=== PATIENT | female | born 1990 | race Caucasian/White ===

== ENCOUNTER 2018-04-21 00:29 | Emergency (ER) | payer OTHER ==
[~2018-04-21] VITALS: Ht 182.9 cm; Wt 86.2 kg
[2018-04-21 00:29] VITALS: BP 122/55
--- NOTE | 2018-04-21 00:33 | ED.ADGEN ---
Past History Past Medical History: Anxiety, Arthritis, Depression, Other Past Surgical History: Other Smoking: Non-smoker Adult General Chief Complaint Chief Complaint ".. I have bad mastitis.. I so very swollen.. We are going home in the morning.. but I brought the baby in .. because I am afraid it got my mastitis.. But I want to be seen too..." HPI HPI Patient is a 28 year old female who presents with above hx and complaints of bilateral mastitis. Pt. has no obvious cellulitis of nipples, striations or adenopathy. Pt. states previous deliveries she developed mastitis. Recent quit feeding the because she was worried if there was infection it would spread to her child. Pt. does have hx of arthritis. and multiple drug allergies. Pt. visiting from [place] but will be returning home this morning. No hx of immunosuppression . No hx of specific ill contacts. Hx. of some episodes of depression in the past, but not currently having problems . Review of Systems Review of Systems Constitutional: Denies fever or chills [] Eyes: Denies change in visual acuity, redness, or eye pain [] HENT: Denies nasal congestion or sore throat [] Respiratory: Denies cough or shortness of breath [] Cardiovascular: No additional information not addressed in HPI [] GI: Denies abdominal pain, nausea, vomiting, bloody stools or diarrhea [] : Denies dysuria or hematuria [] Musculoskeletal: Denies back pain or joint pain [] Integument: Denies rash or skin lesions []Complaints of mastitis. Neurologic: Denies headache, focal weakness or sensory changes [] Endocrine: Denies polyuria or polydipsia [] All other systems were reviewed and found to be within normal limits, except as documented in this note. Family History Family History Non-contributory Current Medications Current Medications Current Medications Medications (Trade) Dose Ordered Sig/Ann Start Time Stop Time Status Last Admin Dose Admin Acetaminophen/ Hydrocodone Bitart (Lortab 5/325) 1 tab 1X ONCE 04/21/18 01:30 04/21/18 01:31 DC 04/21/18 01:16 1 TAB Cephalexin HCl (Keflex) 500 mg 1X ONCE 04/21/18 01:00 04/21/18 01:01 DC 04/21/18 01:00 500 MG Cephalexin HCl (Startper Pack - Keflex 250mg) 1 startpack 1X ONCE 04/21/18 01:00 04/21/18 01:01 DC 04/21/18 01:00 1 STARTPACK Oxycodone/ Acetaminophen (Percocet 5/325) 2 tab 1X ONCE 04/21/18 00:45 04/21/18 01:01 DC Allergies Allergies Allergies Coded Allergies Type Severity Reaction Last Updated Verified acetaminophen Allergy Unknown 04/21/18 Yes dextromethorphan Allergy Unknown 04/21/18 Yes guaifenesin Allergy Unknown 04/21/18 Yes oxycodone Allergy Unknown 04/21/18 Yes phenylephrine Allergy Unknown 04/21/18 Yes Physical Exam Physical Exam Constitutional: Well developed, well nourished, no acute distress, non-toxic appearance. [] HENT: Normocephalic, atraumatic, bilateral external ears normal, oropharynx moist, no oral exudates, nose normal. [] Eyes: PERRLA, EOMI, conjunctiva normal, no discharge. [] Neck: Normal range of motion, no tenderness, supple, no stridor. [] Cardiovascular:Heart rate regular rhythm, no murmur [] Lungs & Thorax: Bilateral breath sounds clear to auscultation [] Abdomen: Bowel sounds normal, soft, no tenderness, no masses, no pulsatile masses. [] Skin: Warm, dry, no erythema, no rash. [] Breast mastitis as per HPI Back: No tenderness, no CVA tenderness. [] Extremities: No tenderness, no cyanosis, no clubbing, ROM intact, no edema. [] Neurologic: Alert and oriented X 3, normal motor function, normal sensory function, no focal deficits noted. [] Psychologic: Affect anxious, judgement normal, mood normal. [] Current Patient Data Vital Signs Vital Signs Date Time Temp Pulse Resp B/P (MAP) Pulse Ox O2 Delivery O2 Flow Rate FiO2 04/21/18 01:16 20 98 Room Air EKG EKG [] Radiology/Procedures Radiology/Procedures [] Course & Med Decision Making Course & Med Decision Making Pertinent Labs and Imaging studies reviewed. (See chart for details) Moist heat compresses. Let child breast feed. Take Keflex 500 three times a day. May take tylenol for pain. Marked pain may have Vicoden 4 x day. Return if any concerns. Follow up with primary. [] Final Impression Final Impression 1. Mastitis[] Dragon Disclaimer Dragon Disclaimer This electronic medical record was generated, in whole or in part, using a voice recognition dictation system. SHAYY NOBLES MD April 21, 2018 00:33
[2018-04-21] MEDS ORDERED: OXYC-323 PO (00:38)
[2018-04-21] MEDS ORDERED: CEPH-264 PO (00:38)
[2018-04-21] MEDS ORDERED: oxyCODONE/APAP 5/325 1 TAB TABLET PO ONE (00:45)
[2018-04-21] MEDS ORDERED: HYDR1TAB12 PO (00:55)
[2018-04-21] MEDS ORDERED: CEPHALEXIN 250MG 4CAPSULE STARTPACK. PO ONE (01:00)
[2018-04-21] MEDS ORDERED: CEPHALEXIN 250 MG CAPSULE PO ONE (01:00)
[2018-04-21] MEDS ORDERED: HYDROcodone/APAP 5/325MG 1 TAB TABLET PO ONE (01:30)
== END 2018-04-21 01:20 | disposition home or self-care (01) ==
LOC: ER 00:29
DX: N61.0 Mastitis without abscess (principal); F41.9 Anxiety disorder, unspecified; M19.90 Unspecified osteoarthritis, unspecified site; F32.9 Major depressive disorder, single episode, unspecified; Z88.6 Allergy status to analgesic agent; Z88.5 Allergy status to narcotic agent; Z88.8 Allergy status to other drugs, medicaments and biological substances
CPT/HCPCS: 99284

== ENCOUNTER 2020-01-23 22:23 | Emergency (ER) | payer OTHER ==
[~2020-01-23] VITALS: Ht 182.9 cm; Wt 84.4 kg
[~2020-01-23 22:23] MED LIST: CEPH-264 PO; HYDR1TAB13 PO; OXYC1TAB15 PO
[2020-01-23] MEDS ORDERED: IV NORMAL SALINE 1,000ML 1,000 ML IV ONE (23:00)
[2020-01-23] MEDS ORDERED: ONDANSETRON PF 4 MG/2 ML VIAL. IVP ONE (23:00)
[2020-01-23] MEDS ORDERED: FAMOTIDINE 20 MG/2 ML VIAL IVP ONE (23:00)
[2020-01-23] MEDS ORDERED: KETOROLAC 15 MG/ML VIAL. IVP ONE (23:30)
[2020-01-23 23:44] LABS: BASO # 0.1 x10^3/uL (0.0-0.2); BASO % 1 % (0-3); EOS # 0.6 x10^3/uL (0.0-0.7); EOS % 6 % (0-3); HEMATOCRIT 37.9 % (36.0-47.0); HEMOGLOBIN 12.2 g/dL (12.0-15.5); LYMPH # 3.8 x10^3/uL (1.0-4.8); LYMPH % 43 % (24-48); MEAN CORPUSCULAR HEMOGLOBIN 26 pg (25-35); MEAN CORPUSCULAR HGB CONC 32 g/dL (31-37); MEAN CORPUSCULAR VOLUME 81 fL (79-100); MONO # 0.5 x10^3/uL (0.0-1.1); MONO % 5 % (0-9); NEUT # 3.9 x10^3uL (1.8-7.7); NEUT % 44 % (31-73); PLATELET COUNT 324 x10^3/uL (140-400); RED BLOOD COUNT 4.69 x10^6/uL (3.50-5.40); RED CELL DISTRIBUTION WIDTH 15.1 % (11.5-14.5); WHITE BLOOD COUNT 8.8 x10^3/uL (4.0-11.0)
[2020-01-23 23:53] LABS: CALCIUM 8.4 mg/dL (8.5-10.1); CREATININE 0.7 mg/dL (0.6-1.0); GFR 98.3; POTASSIUM 3.3 mmol/L (3.5-5.1)
[2020-01-23 23:55] LABS: U PREG PATIENT NEGATIVE (NEG)
[2020-01-23 23:57] LABS: BACTERIA,URINE FEW /HPF (0-FEW); BILIRUBIN,URINE NEG (NEG); CLARITY,URINE CLEAR; COLOR,URINE YELLOW; GLUCOSE,URINE NEG (NEG); NITRITE,URINE NEG (NEG); SQUAMOUS EPITHELIAL CELL,UR FEW /LPF; UROBILINOGEN,URINE 0.2 mg/dL (0.2 mg/dL); WBC,URINE OCC /HPF (0-4)
[2020-01-23 23:59] LABS: ALBUMIN 3.8 g/dL (3.4-5.0); ALBUMIN/GLOBULIN RATIO 1.2 (1.0-1.7); MAGNESIUM 2.1 mg/dL (1.8-2.4); TOTAL BILIRUBIN 0.2 mg/dL (0.2-1.0); TOTAL PROTEIN 6.9 g/dL (6.4-8.2)
--- NOTE | 2020-01-24 00:41 | RAD ---
US PELVIS W/TV History: Pelvic pain. Vaginal bleeding. Comparison: None. Technique: Grayscale and color Doppler imaging of the pelvis was performed using transabdominal and transvaginal technique. Findings: The uterus measures 10.7 x 4.5 x 6.6 cm in length. Uterus has an unremarkable appearance. The endometrial stripe measures 6.3 mm. Right ovary measures 3.8 x 2.6 x 2.0 cm. Left ovary measures 2.9 x 2.3 x 1.7 cm. No adnexal masses are seen. Small physiologic free fluid. IMPRESSION: 1. Unremarkable pelvic ultrasound. Electronically signed by: Jonny Carson DO (01/24/2020 12:38 AM) [id number]
--- NOTE | 2020-01-24 00:47 | PHYS DOC ---
Past History Past Medical History: Anxiety, Arthritis, Depression, Other Additional Past Medical Histor: Ovarian cyst, Endometreosis Past Surgical History: Tubal ligation, Other Additional Past Surgical Histo: D&C Smoking: Non-smoker Alcohol Use: Occasionally Drug Use: None Adult General Chief Complaint Chief Complaint: ABDOMINAL PAIN HPI HPI 29 year old female presents with lower abdominal/pelvic pain left > right which has been ongoing for last few days. Denies fever/chills. Denies nausea/vomiting/diarrhea. Reports history of endometriosis and ovarian cysts. Reports pain similar to prior episodes. Denies rash or vaginal discharge. 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 Current Medications Current Medications Current Medications Medications (Trade) Dose Ordered Sig/Ann Start Time Stop Time Status Last Admin Dose Admin Famotidine (Pepcid Vial) 20 mg 1X ONCE 01/23/20 23:00 01/23/20 23:01 DC 01/23/20 23:00 20 MG Ketorolac Tromethamine (Toradol 15mg Vial) 15 mg 1X ONCE 01/23/20 23:30 01/23/20 23:31 DC 01/23/20 23:00 15 MG Ondansetron HCl (Zofran) 4 mg 1X ONCE 01/23/20 23:00 01/23/20 23:01 DC 01/23/20 23:00 4 MG Sodium Chloride 1,000 ml @ 1,000 mls/hr 1X ONCE 01/23/20 23:00 01/23/20 23:59 DC 01/23/20 23:00 1,000 MLS/HR Allergies Allergies Allergies Coded Allergies Type Severity Reaction Last Updated Verified acetaminophen Allergy Unknown 04/21/18 Yes dextromethorphan Allergy Unknown 04/21/18 Yes guaifenesin Allergy Unknown 04/21/18 Yes oxycodone Allergy Unknown 04/21/18 Yes phenylephrine Allergy Unknown 04/21/18 Yes Physical Exam Physical Exam Constitutional: Well developed, well nourished, no acute distress, non-toxic appearance HENT: Normocephalic, atraumatic, oropharynx moist Eyes: Conjunctiva normal, no discharge Neck: Normal range of motion, no tenderness, supple Cardiovascular:Heart rate normal, regular rhythm Lungs & Thorax: Bilateral breath sounds clear to auscultation, no wheezing Abdomen: Soft, low LLQ tenderness 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, 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, no CMT, left adnexal tenderness, mild amount of white discharge noted in vaginal vault Skin: Warm, dry, no erythema, no rash Back: No tenderness, no CVA tenderness Extremities: No tenderness, ROM intact Neurologic: Alert and oriented X 3, no focal deficits noted Psychologic: Affect normal, judgement normal Current Patient Data Lab Results Laboratory Tests Test 01/23/20 23:00 01/23/20 23:10 Urine Collection Type Void Urine Color Yellow Urine Clarity Clear Urine pH 5.5 Urine Specific [place] >=1.030 Urine Protein Neg (NEG-TRACE) Urine Glucose (UA) Neg mg/dL (NEG) Urine Ketones (Stick) Neg mg/dL (NEG) Urine Blood Mod (NEG) Urine Nitrite Neg (NEG) Urine Bilirubin Neg (NEG) Urine Urobilinogen Dipstick 0.2 mg/dL (0.2 mg/dL) Urine Leukocyte Esterase Neg (NEG) Urine RBC 1-2 /HPF (0-2) Urine WBC Occ /HPF (0-4) Urine Squamous Epithelial Cells Few /LPF Urine Bacteria Few /HPF (0-FEW) Urine Mucus Mod /LPF White Blood Count 8.8 x10^3/uL (4.0-11.0) Red Blood Count 4.69 x10^6/uL (3.50-5.40) Hemoglobin 12.2 g/dL (12.0-15.5) Hematocrit 37.9 % (36.0-47.0) Mean Corpuscular Volume 81 fL (79-100) Mean Corpuscular Hemoglobin 26 pg (25-35) Mean Corpuscular Hemoglobin Concent 32 g/dL (31-37) Red Cell Distribution Width 15.1 % (11.5-14.5) H Platelet Count 324 x10^3/uL (140-400) Neutrophils (%) (Auto) 44 % (31-73) Lymphocytes (%) (Auto) 43 % (24-48) Monocytes (%) (Auto) 5 % (0-9) Eosinophils (%) (Auto) 6 % (0-3) H Basophils (%) (Auto) 1 % (0-3) Neutrophils # (Auto) 3.9 x10^3uL (1.8-7.7) Lymphocytes # (Auto) 3.8 x10^3/uL (1.0-4.8) Monocytes # (Auto) 0.5 x10^3/uL (0.0-1.1) Eosinophils # (Auto) 0.6 x10^3/uL (0.0-0.7) Basophils # (Auto) 0.1 x10^3/uL (0.0-0.2) Urine Test Negative (NEG) Sodium Level 145 mmol/L (136-145) Potassium Level 3.3 mmol/L (3.5-5.1) L Chloride Level 107 mmol/L (98-107) Carbon Dioxide Level 30 mmol/L (21-32) Anion Gap 8 (6-14) Blood Urea Nitrogen 6 mg/dL (7-20) L Creatinine 0.7 mg/dL (0.6-1.0) Estimated GFR (Cockcroft-Gault) 98.3 BUN/Creatinine Ratio 9 (6-20) Glucose Level 84 mg/dL (70-99) Lactic Acid Level 0.7 mmol/L (0.4-2.0) Calcium Level 8.4 mg/dL (8.5-10.1) L Magnesium Level 2.1 mg/dL (1.8-2.4) Total Bilirubin 0.2 mg/dL (0.2-1.0) Aspartate Amino Transferase (AST) 12 U/L (15-37) L Alanine Aminotransferase (ALT) 15 U/L (14-59) Alkaline Phosphatase 78 U/L (46-116) Total Protein 6.9 g/dL (6.4-8.2) Albumin 3.8 g/dL (3.4-5.0) Albumin/Globulin Ratio 1.2 (1.0-1.7) Lipase 134 U/L (73-393) EKG EKG [] Radiology/Procedures Radiology/Procedures PROCEDURE: US PELVIS W/TV US PELVIS W/TV History: Pelvic pain. Vaginal bleeding. Comparison: None. Technique: Grayscale and color Doppler imaging of the pelvis was performed using transabdominal and transvaginal technique. Findings: The uterus measures 10.7 x 4.5 x 6.6 cm in length. Uterus has an unremarkable appearance. The endometrial stripe measures 6.3 mm. Right ovary measures 3.8 x 2.6 x 2.0 cm. Left ovary measures 2.9 x 2.3 x 1.7 cm. No adnexal masses are seen. Small physiologic free fluid. IMPRESSION: 1. Unremarkable pelvic ultrasound. Electronically signed by: Jonny Carson DO (01/24/2020 12:38 AM) [id number] Course & Med Decision Making Course & Med Decision Making Pertinent Labs and Imaging studies reviewed. (See chart for details) Patient presents with left lower quadrant/pelvic pain. Pain addressed. Labs obtained and posted to chart. US without acute process. Pelvic exam performed. Chlamydia/Gonorrhea cultures pending. Wet mount positive for BV. Flagyl given. 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 Discussed findings and plan with patient, who acknowledges understanding and agreement. Dragon Disclaimer Dragon Disclaimer This electronic medical record was generated, in whole or in part, using a voice recognition dictation system. Departure Departure: Impression: Primary Impression: Pelvic pain Additional Impression: Bacterial vaginitis Disposition: HOME, SELF-CARE Condition: STABLE Referrals: PCP,NO (PCP) Patient Instructions: Pelvic Pain, Female, [id number] Additional Instructions: Use over the counter Tylenol and Naproxen for pain or discomfort. Scripts Metronidazole (FLAGYL) 500 Mg Tablet 1 TAB PO BID for Vaginitis, #14 TAB Prov: CARSON CARPENTER DO 01/24/20 Problem Qualifiers CARSON CARPENTER DO Jan 24, 2020 00:47
[2020-01-24 01:34] VITALS: BP 95/54
[2020-01-24] MEDS ORDERED: METR500T PO (01:43)
[2020-01-24] MEDS ORDERED: metroNIDAZOLE 500 MG TABLET PO ONE (02:00)
[2020-01-25 20:06] LABS: CHLAMYDIA PROBE Negative (Negative)
== END 2020-01-24 01:48 | disposition home or self-care (01) ==
LOC: ER 22:23
DX: N76.0 Acute vaginitis (principal); B96.89 Other specified bacterial agents as the cause of diseases classified elsewhere; M19.90 Unspecified osteoarthritis, unspecified site; Z98.51 Tubal ligation status; Z88.6 Allergy status to analgesic agent; Z88.5 Allergy status to narcotic agent; Z88.8 Allergy status to other drugs, medicaments and biological substances
CPT/HCPCS: 36415; 76830; 76856; 80053; 81001; 81025; 83605; 83690; 83735; 85025; 87491; 87591; 96374; 96375; 99284; J1885; J2405; J3490; Q0111; 96361; J7030

== ENCOUNTER 2020-04-06 22:12 | Emergency (ER) | payer SELFPAY ==
[~2020-04-06] VITALS: Ht 182.9 cm; Wt 84.4 kg
[~2020-04-06 22:12] MED LIST changes: +METR500T PO
[2020-04-06] MEDS ORDERED: IV NORMAL SALINE 1,000ML 1,000 ML IV ONE (22:45)
--- NOTE | 2020-04-06 22:46 | EKG ---
[address] [address] Test Date: 2020-04-06 Test Time: 22:16:07 Pat Name: SHONDA CASTRO Department: Room: Gender: F Barman: : 1990 Requested By: ARMINDA LACEY Order Number: [id number] Reading MD: Chidi Ruiz Measurements Intervals [place] Rate: 63 P: 42 MD: 134 QRS: 46 QRSD: 96 T: 44 QT: 372 QTc: 384 Interpretive Statements SINUS RHYTHM NORMAL ECG RI6.02 No previous ECG available for comparison Electronically Signed On 04-08-2020 8:33:39 CDT by Chidi Ruiz
[2020-04-06 22:59] LABS: BASO # 0.1 x10^3/uL (0.0-0.2); BASO % 1 % (0-3); EOS # 0.4 x10^3/uL (0.0-0.7); EOS % 5 % (0-3); HEMATOCRIT 36.7 % (36.0-47.0); HEMOGLOBIN 11.9 g/dL (12.0-15.5); LYMPH # 3.2 x10^3/uL (1.0-4.8); LYMPH % 43 % (24-48); MEAN CORPUSCULAR HEMOGLOBIN 26 pg (25-35); MEAN CORPUSCULAR HGB CONC 32 g/dL (31-37); MEAN CORPUSCULAR VOLUME 80 fL (79-100); MONO # 0.5 x10^3/uL (0.0-1.1); MONO % 6 % (0-9); NEUT # 3.3 x10^3uL (1.8-7.7); NEUT % 45 % (31-73); PLATELET COUNT 305 x10^3/uL (140-400); RED BLOOD COUNT 4.59 x10^6/uL (3.50-5.40); RED CELL DISTRIBUTION WIDTH 15.9 % (11.5-14.5); WHITE BLOOD COUNT 7.4 x10^3/uL (4.0-11.0)
[2020-04-06 23:00] LABS: CALCIUM 8.8 mg/dL (8.5-10.1); CREATININE 0.7 mg/dL (0.6-1.0); GFR 97.6
[2020-04-06 23:06] LABS: ALBUMIN 3.7 g/dL (3.4-5.0); ALBUMIN/GLOBULIN RATIO 1.2 (1.0-1.7); MAGNESIUM 2.3 mg/dL (1.8-2.4); TOTAL BILIRUBIN 0.2 mg/dL (0.2-1.0); TOTAL PROTEIN 6.9 g/dL (6.4-8.2)
[2020-04-06 23:25] LABS: BARBITURATES NEG (NEG); BENZODIAZEPINES NEG (NEG); CANNABINOIDS NEG (NEG); COCAINE NEG (NEG); METHADONE NEG (NEG); OPIATES NEG (NEG); PHENCYCLIDINE NEG (NEG)
[2020-04-06 23:26] LABS: BACTERIA,URINE 0 /HPF (0-FEW); BILIRUBIN,URINE NEG (NEG); CLARITY,URINE CLEAR; COLOR,URINE YELLOW; GLUCOSE,URINE NEG (NEG); NITRITE,URINE NEG (NEG); RBC,URINE 0 /HPF (0-2); SQUAMOUS EPITHELIAL CELL,UR FEW /LPF; UROBILINOGEN,URINE 0.2 mg/dL (0.2 mg/dL); WBC,URINE OCC /HPF (0-4)
[2020-04-06 23:27] LABS: AMPHETAMINE/METHAMPHETAMINE NEG (NEG)
--- NOTE | 2020-04-06 23:27 | RAD ---
CT Head W/O Contrast: History: Syncopal fall headache and neck pain Comparison: none Axial images were obtained without contrast. The orona and white matter appears normal and symmetrical for the patients age. There is no mass effect, extraaxial fluid collections or hydrocephalus. There is no gross bleed. There is no focal loss of orona-white matter distinction to suggest acute ischemia, i.e. stroke. Impression: No acute findings. End impression CT C-Spine without contrast: Clinical History: Pain status post fall Technique: Axial helical images of the cervical spine were obtained without contrast, axial coronal and sagittal reconstruction was performed. Findings: There is no loss of vertebral body stature. There is no prevertebral soft tissue swelling. The vertebral bodies are well aligned. The C1-C2 relationship is normal. The visualized osseous structures appear normal. Evaluation of the central canal is limited without contrast. There is multiple posterior disc bulges resulting in flattening of the thecal sac. There does not appear to be gross flattening of the cervical cord. There is minimal narrowing of multiple neuroforamen. Impression: No acute findings. Clinical correlation suggested. PQRS Compliance Statement: One or more of the following individualized dose reduction techniques were utilized for this examination: 1. Automated exposure control 2. Adjustment of the mA and/or kV according to patient size 3. Use of iterative reconstruction technique Electronically signed by: Norman Calderón III, MD (04/06/2020 11:24 PM) [id number]
[2020-04-06] MEDS ORDERED: KETOROLAC 30 MG/ML VIAL. IVP ONE (23:45)
--- NOTE | 2020-04-06 23:45 | PHYS DOC ---
Past History Past Medical History: Migraines, Ovarian Cyst, Other Additional Past Medical Histor: chronic low back pain, Endometreosis Past Surgical History: , Tubal ligation, Other Additional Past Surgical Histo: D&C Smoking: Non-smoker Alcohol Use: None Drug Use: None General Adult EDM: Chief Complaint: SYNCOPE HPI: HPI: Patient is a 30-year-old female who was brought here by EMS from home after she had a syncopal episode at home driveway. Patient says she was walking home from her sister which is two block sway, and the next and she knows she was on the ground on her driveway. Patient says she was outside painting her house for several hours before that. Patient says she has been having a headache for the last 3 days, which is chronic migraine headache. Patient denies any chest pain or any trouble breathing. Patient denies any back pain. Review of Systems: Review of Systems: Constitutional: Denies fever or chills Eyes: Denies change in visual acuity HENT: Denies nasal congestion or sore throat Respiratory: Denies cough or shortness of breath Cardiovascular: Denies chest pain or edema GI: Denies abdominal pain, nausea, vomiting, bloody stools or diarrhea : Denies dysuria Musculoskeletal: Denies back pain or joint pain Integument: Denies rash Neurologic: Denies focal weakness or sensory changes . Positive for headache Endocrine: Denies polyuria or polydipsia Lymphatic: Denies swollen glands Psychiatric: Denies depression or anxiety Heart Score: Risk Factors: Risk Factors: DM, Current or recent (<one month) smoker, HTN, HLP, family history of CAD, obesity. Risk Scores: Score 0 - 3: 2.5% MACE over next 6 weeks - Discharge Home Score 4 - 6: 20.3% MACE over next 6 weeks - Admit for Clinical Observation Score 7 - 10: 72.7% MACE over next 6 weeks - Early Invasive Strategies Current Medications: Current Meds: Current Medications Medications (Trade) Dose Ordered Sig/Ann Start Time Stop Time Status Last Admin Dose Admin Sodium Chloride 1,000 ml @ 1,000 mls/hr 1X ONCE 04/06/20 22:45 04/06/20 23:44 DC 04/06/20 23:06 1,000 MLS/HR Allergies: Allergies: Allergies Coded Allergies Type Severity Reaction Last Updated Verified Pertussis Vaccines Allergy Unknown 04/06/20 Yes phenylephrine Allergy Unknown 04/06/20 Yes poliomyelitis vaccine,killed Allergy Unknown 04/06/20 Yes Physical Exam: PE: Constitutional: Well developed, well nourished, no acute distress, non-toxic appearance. [] HENT: Normocephalic, atraumatic, bilateral external ears normal, oropharynx moist, no oral exudates, nose normal. [] Eyes: PERRLA, EOMI, conjunctiva normal, no discharge. [] Neck: Normal range of motion, no tenderness, supple, no stridor. [] Cardiovascular:Heart rate regular rhythm, no murmur [] Lungs & Thorax: Bilateral breath sounds clear to auscultation [] Abdomen: Bowel sounds normal, soft, no tenderness, no masses, no pulsatile masses. [] Skin: Warm, dry, no erythema, no rash. [] Back: No tenderness, no CVA tenderness. [] Extremities: No tenderness, no cyanosis, no clubbing, ROM intact, no edema. [] Neurologic: Alert and oriented X 3, normal motor function, normal sensory function, no focal deficits noted. [] Psychologic: Affect normal, judgement normal, mood normal. [] Current Patient Data: Labs: Laboratory Tests Test 04/06/20 22:30 04/06/20 22:50 04/06/20 23:06 White Blood Count 7.4 x10^3/uL (4.0-11.0) Red Blood Count 4.59 x10^6/uL (3.50-5.40) Hemoglobin 11.9 g/dL (12.0-15.5) L Hematocrit 36.7 % (36.0-47.0) Mean Corpuscular Volume 80 fL (79-100) Mean Corpuscular Hemoglobin 26 pg (25-35) Mean Corpuscular Hemoglobin Concent 32 g/dL (31-37) Red Cell Distribution Width 15.9 % (11.5-14.5) H Platelet Count 305 x10^3/uL (140-400) Neutrophils (%) (Auto) 45 % (31-73) Lymphocytes (%) (Auto) 43 % (24-48) Monocytes (%) (Auto) 6 % (0-9) Eosinophils (%) (Auto) 5 % (0-3) H Basophils (%) (Auto) 1 % (0-3) Neutrophils # (Auto) 3.3 x10^3uL (1.8-7.7) Lymphocytes # (Auto) 3.2 x10^3/uL (1.0-4.8) Monocytes # (Auto) 0.5 x10^3/uL (0.0-1.1) Eosinophils # (Auto) 0.4 x10^3/uL (0.0-0.7) Basophils # (Auto) 0.1 x10^3/uL (0.0-0.2) Sodium Level 142 mmol/L (136-145) Potassium Level 4.0 mmol/L (3.5-5.1) Chloride Level 106 mmol/L (98-107) Carbon Dioxide Level 29 mmol/L (21-32) Anion Gap 7 (6-14) Blood Urea Nitrogen 13 mg/dL (7-20) Creatinine 0.7 mg/dL (0.6-1.0) Estimated GFR (Cockcroft-Gault) 97.6 BUN/Creatinine Ratio 19 (6-20) Glucose Level 86 mg/dL (70-99) Calcium Level 8.8 mg/dL (8.5-10.1) Magnesium Level 2.3 mg/dL (1.8-2.4) Total Bilirubin 0.2 mg/dL (0.2-1.0) Aspartate Amino Transferase (AST) 15 U/L (15-37) Alanine Aminotransferase (ALT) 21 U/L (14-59) Alkaline Phosphatase 72 U/L (46-116) Troponin I Quantitative < 0.017 ng/mL (0-0.055) Total Protein 6.9 g/dL (6.4-8.2) Albumin 3.7 g/dL (3.4-5.0) Albumin/Globulin Ratio 1.2 (1.0-1.7) Urine Collection Type Unknown Urine Color Yellow Urine Clarity Clear Urine pH 5.5 Urine Specific [place] 1.020 Urine Protein Neg (NEG-TRACE) Urine Glucose (UA) Neg mg/dL (NEG) Urine Ketones (Stick) Neg mg/dL (NEG) Urine Blood Neg (NEG) Urine Nitrite Neg (NEG) Urine Bilirubin Neg (NEG) Urine Urobilinogen Dipstick 0.2 mg/dL (0.2 mg/dL) Urine Leukocyte Esterase Neg (NEG) Urine RBC 0 /HPF (0-2) Urine WBC Occ /HPF (0-4) Urine Squamous Epithelial Cells Few /LPF Urine Bacteria 0 /HPF (0-FEW) Urine Opiates Screen Neg (NEG) Urine Methadone Screen Neg (NEG) Urine Barbiturates Neg (NEG) Urine Phencyclidine Screen Neg (NEG) Urine Amphetamine/Methamphetamine Neg (NEG) Urine Benzodiazepines Screen Neg (NEG) Urine Cocaine Screen Neg (NEG) Urine Cannabinoids Screen Neg (NEG) Urine Ethyl Alcohol Neg (NEG) POC Urine HCG, Qualitative hcg negative (Negative) Vital Signs: Vital Signs Date Time Temp Pulse Resp B/P (MAP) Pulse Ox O2 Delivery O2 Flow Rate FiO2 04/06/20 22:12 98.0 64 18 108/61 (77) 99 Room Air EKG: EKG: EKG was done at 2217, heart rate of 63 bpm, normal sinus rhythm, no STEMI. Radiology/Procedures: Radiology/Procedures: [][place] [address] IMAGING REPORT Signed PATIENT: SHONDA CASTRO ACCOUNT: [id number] : 1990 LOCATION: ER AGE: 30 SEX: F EXAM STATUS: REG ER ORD. PHYSICIAN: ARMINDA LACEY DO REASON: HAD A SYNCOPE, FELL ON DRIVEWAY, HEADACHE, NECK PAIN PROCEDURE: CT HEAD AND CERVICAL SPINE WO CT Head W/O Contrast: History: Syncopal fall headache and neck pain Comparison: none Axial images were obtained without contrast. The orona and white matter appears normal and symmetrical for the patients age. There is no mass effect, extraaxial fluid collections or hydrocephalus. There is no gross bleed. There is no focal loss of orona-white matter distinction to suggest acute ischemia, i.e. stroke. Impression: No acute findings. End impression CT C-Spine without contrast: Clinical History: Pain status post fall Technique: Axial helical images of the cervical spine were obtained without contrast, axial coronal and sagittal reconstruction was performed. Findings: There is no loss of vertebral body stature. There is no prevertebral soft tissue swelling. The vertebral bodies are well aligned. The C1-C2 relationship is normal. The visualized osseous structures appear normal. Evaluation of the central canal is limited without contrast. There is multiple posterior disc bulges resulting in flattening of the thecal sac. There does not appear to be gross flattening of the cervical cord. There is minimal narrowing of multiple neuroforamen. Impression: No acute findings. Clinical correlation suggested. RS Compliance Statement: One or more of the following individualized dose reduction techniques were utilized for this examination: 1. Automated exposure control 2. Adjustment of the mA and/or kV according to patient size 3. Use of iterative reconstruction technique Electronically signed by: Jose Stanley III, MD (04/06/2020 11:24 PM) [id number] DICTATED AND SIGNED BY: JOSE STANLEY III, MD DATE: 04/06/20 7519 CC: PCP,CHINYERE; ARMINDA LACEY DO ~ Course & Med Decision Making: Course & Med Decision Making Pertinent Labs and Imaging studies reviewed. (See chart for details) Patient is a 30-year-old female who was evaluated in the ED today due to syncopal episode. CT scan her head and her C-spine did not show any acute problem. Her EKG was normal sinus rhythm, her lab work was normal. Patient was back to her normal self, she will be discharged home. Dragon Disclaimer: [employer] Disclaimer: This electronic medical record was generated, in whole or in part, using a voice recognition dictation system. Departure Departure: Impression: Primary Impression: Syncope and collapse Disposition: 01 HOME/RESIDENCE PRIOR TO ADM Condition: STABLE Referrals: PCPCHINYERE (PCP) follow up with your doctor as needed Patient Instructions: Syncope Additional Instructions: Thank you for visiting our Emergency Department. We appreciate you trusting us with your care. If any additional problems come up don't hesitate to return to visit us. Please follow up with your primary care provider so they can plan additional care if needed and know about the problem that you had. If symptoms w orsen come back to the Emergency Department. Any concerning symptoms that start such as chest pain, shortness of air, weakness or numbness on one side of the body, running high fevers or any other concerning symptoms return to the ER. ARMINDA LACEY DO April 06, 2020 23:45
[2020-04-07 00:40] VITALS: BP 107/71
== END 2020-04-07 00:40 | disposition home or self-care (01) ==
LOC: ER 22:12
DX: R55 Syncope and collapse (principal); G43.909 Migraine, unspecified, not intractable, without status migrainosus; G89.29 Other chronic pain; Z88.8 Allergy status to other drugs, medicaments and biological substances; Z88.7 Allergy status to serum and vaccine; W18.39XA Other fall on same level, initial encounter; Y93.89 Activity, other specified; Y92.89 Other specified places as the place of occurrence of the external cause; Y99.8 Other external cause status
CPT/HCPCS: 36415; 70450; 72125; 80053; 80307; 81001; 81025; 83735; 84484; 85025; 93005; 96361; 96374; 99285; J1885; J7030

== ENCOUNTER 2020-07-11 12:41 | Emergency (ER) | payer BC ==
[~2020-07-11] VITALS: Ht 182.9 cm; Wt 88.2 kg
[2020-07-11] MEDS ORDERED: IV NORMAL SALINE 1,000ML 1,000 ML IV ONE ×2 (13:00→13:45)
--- NOTE | 2020-07-11 13:09 | EKG ---
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
[2020-07-11 13:19] LABS: BASO # 0.1 x10^3/uL (0.0-0.2); BASO % 1 % (0-3); EOS # 0.4 x10^3/uL (0.0-0.7); EOS % 6 % (0-3); HEMATOCRIT 37.8 % (36.0-47.0); HEMOGLOBIN 12.4 g/dL (12.0-15.5); LYMPH # 2.3 x10^3/uL (1.0-4.8); LYMPH % 34 % (24-48); MEAN CORPUSCULAR HEMOGLOBIN 26 pg (25-35); MEAN CORPUSCULAR HGB CONC 33 g/dL (31-37); MEAN CORPUSCULAR VOLUME 78 fL (79-100); MONO # 0.4 x10^3/uL (0.0-1.1); MONO % 6 % (0-9); NEUT # 3.6 x10^3uL (1.8-7.7); NEUT % 52 % (31-73); PLATELET COUNT 314 x10^3/uL (140-400); RED BLOOD COUNT 4.83 x10^6/uL (3.50-5.40); WHITE BLOOD COUNT 6.9 x10^3/uL (4.0-11.0)
[2020-07-11 13:25] LABS: CALCIUM 8.5 mg/dL (8.5-10.1); GFR 64.7; POTASSIUM 3.5 mmol/L (3.5-5.1)
[2020-07-11 13:31] LABS: ALBUMIN 3.6 g/dL (3.4-5.0); MAGNESIUM 2.2 mg/dL (1.8-2.4); TOTAL BILIRUBIN 0.3 mg/dL (0.2-1.0); TOTAL PROTEIN 7.3 g/dL (6.4-8.2)
--- NOTE | 2020-07-11 14:38 | PHYS DOC ---
Past History Past Medical History: Other Additional Past Medical Histor: Vertigo Past Surgical History: Additional Past Surgical Histo: D&C Smoking: Non-smoker Alcohol Use: Occasionally Drug Use: None General Adult EDM: Chief Complaint: DIZZY/LIGHT HEADED HPI: HPI: Patient is a 30-year-old female who presented to ER today for evaluation of dizziness off and on since Saturday. Patient said the symptoms got worse whenever she up and walk around. Patient denies any headache, no blurry vision, no chest pain, no trouble breathing. Patient denies any cough or fever. Patient says the dizziness associate with some nausea vomiting, so she had not been able to eat or drink much. Patient said when she was she was diagnosed with vertigo. Patient denies any recent travel or operation. Review of Systems: Review of Systems: Constitutional: Denies fever or chills Eyes: Denies change in visual acuity HENT: Denies nasal congestion or sore throat Respiratory: Denies cough or shortness of breath Cardiovascular: Denies chest pain or edema GI: Denies abdominal pain,, bloody stools or diarrhea , positive for nausea. : Denies dysuria Musculoskeletal: Denies back pain or joint pain Integument: Denies rash Neurologic: Positive for dizziness Endocrine: Denies polyuria or polydipsia Lymphatic: Denies swollen glands Psychiatric: Denies depression or anxiety Heart Score: Risk Factors: Risk Factors: DM, Current or recent (<one month) smoker, HTN, HLP, family history of CAD, obesity. Risk Scores: Score 0 - 3: 2.5% MACE over next 6 weeks - Discharge Home Score 4 - 6: 20.3% MACE over next 6 weeks - Admit for Clinical Observation Score 7 - 10: 72.7% MACE over next 6 weeks - Early Invasive Strategies Current Medications: Current Meds: Current Medications Medications (Trade) Dose Ordered Sig/Ann Start Time Stop Time Status Last Admin Dose Admin Sodium Chloride 1,000 ml @ 1,000 mls/hr 1X ONCE 07/11/20 13:45 07/11/20 14:44 07/11/20 14:09 1,000 MLS/HR Allergies: Allergies: Allergies Coded Allergies Type Severity Reaction Last Updated Verified Pertussis Vaccines Allergy Unknown 04/06/20 Yes phenylephrine Allergy Unknown 04/06/20 Yes poliomyelitis vaccine,killed Allergy Unknown 04/06/20 Yes Physical Exam: PE: Constitutional: Well developed, well nourished, no acute distress, non-toxic appearance. [] HENT: Normocephalic, atraumatic, bilateral external ears normal, oropharynx moist, no oral exudates, nose normal. [] Eyes: PERRLA, EOMI, conjunctiva normal, no discharge. [] Neck: Normal range of motion, no tenderness, supple, no stridor. [] Cardiovascular:Heart rate regular rhythm, no murmur [] Lungs & Thorax: Bilateral breath sounds clear to auscultation [] Abdomen: Bowel sounds normal, soft, no tenderness, no masses, no pulsatile masses. [] Skin: Warm, dry, no erythema, no rash. [] Back: No tenderness, no CVA tenderness. [] Extremities: No tenderness, no cyanosis, no clubbing, ROM intact, no edema. [] Neurologic: Alert and oriented X 3, normal motor function, normal sensory function, no focal deficits noted. [] Psychologic: Affect normal, judgement normal, mood normal. [] Current Patient Data: Labs: Laboratory Tests Test 07/11/20 13:04 White Blood Count 6.9 x10^3/uL (4.0-11.0) Red Blood Count 4.83 x10^6/uL (3.50-5.40) Hemoglobin 12.4 g/dL (12.0-15.5) Hematocrit 37.8 % (36.0-47.0) Mean Corpuscular Volume 78 fL (79-100) L Mean Corpuscular Hemoglobin 26 pg (25-35) Mean Corpuscular Hemoglobin Concent 33 g/dL (31-37) Red Cell Distribution Width 16.0 % (11.5-14.5) H Platelet Count 314 x10^3/uL (140-400) Neutrophils (%) (Auto) 52 % (31-73) Lymphocytes (%) (Auto) 34 % (24-48) Monocytes (%) (Auto) 6 % (0-9) Eosinophils (%) (Auto) 6 % (0-3) H Basophils (%) (Auto) 1 % (0-3) Neutrophils # (Auto) 3.6 x10^3uL (1.8-7.7) Lymphocytes # (Auto) 2.3 x10^3/uL (1.0-4.8) Monocytes # (Auto) 0.4 x10^3/uL (0.0-1.1) Eosinophils # (Auto) 0.4 x10^3/uL (0.0-0.7) Basophils # (Auto) 0.1 x10^3/uL (0.0-0.2) Sodium Level 141 mmol/L (136-145) Potassium Level 3.5 mmol/L (3.5-5.1) Chloride Level 106 mmol/L (98-107) Carbon Dioxide Level 28 mmol/L (21-32) Anion Gap 7 (6-14) Blood Urea Nitrogen 7 mg/dL (7-20) Creatinine 1.0 mg/dL (0.6-1.0) Estimated GFR (Cockcroft-Gault) 64.7 BUN/Creatinine Ratio 7 (6-20) Glucose Level 87 mg/dL (70-99) Calcium Level 8.5 mg/dL (8.5-10.1) Magnesium Level 2.2 mg/dL (1.8-2.4) Total Bilirubin 0.3 mg/dL (0.2-1.0) Aspartate Amino Transferase (AST) 12 U/L (15-37) L Alanine Aminotransferase (ALT) 15 U/L (14-59) Alkaline Phosphatase 80 U/L (46-116) Total Protein 7.3 g/dL (6.4-8.2) Albumin 3.6 g/dL (3.4-5.0) Albumin/Globulin Ratio 1.0 (1.0-1.7) Vital Signs: Vital Signs Date Time Temp Pulse Resp B/P (MAP) Pulse Ox O2 Delivery O2 Flow Rate FiO2 07/11/20 13:30 64 16 113/51 (71) 98 07/11/20 12:46 98.2 Room Air EKG: EKG: EKG was done at 1255, heart rate of 65 bpm, normal sinus rhythm, no ST segment elevation. [] Radiology/Procedures: Radiology/Procedures: [] Course & Med Decision Making: Course & Med Decision Making Pertinent Labs and Imaging studies reviewed. (See chart for details) Patient is a 30-year-old female who presented to ER today for evaluation of dizziness and nausea. Patient denies any headache, no blurry vision. Patient says symptoms got worse when she was walking or an upright position. Patient was felt to be dehydrated, when she stood up to have her blood pressure check patient feels dizzy and passed out for a few seconds. Patient was given 2 L normal saline IV bolus in the ER, she feels much better. Patient was able to get up and walk to the bathroom without a problem. Patient says she feels much better now. Patient was discharged home in stable condition, she will need to follow-up with her family doctor for further evaluation and treatment. Dragon Disclaimer: Dragon Disclaimer: This electronic medical record was generated, in whole or in part, using a voice recognition dictation system. Departure Departure: Impression: Primary Impression: Dehydration Additional Impression: Orthostatic dizziness Disposition: HOME/RESIDENCE PRIOR TO ADM Condition: STABLE Referrals: PCP,NO (PCP) PLEASE FOLLOW UP WITH YOUR DOCTOR THIS WEEK. Patient Instructions: Dehydration, Adult, Orthostatic Hypotension Justification of Admission: Justification of Admission: Justification of Admission Dx: N/A ARMINDA LACEY DO Jul 11, 2020 14:38
[2020-07-11 15:35] LABS: BILIRUBIN,URINE NEG (NEG); CLARITY,URINE HAZY; COLOR,URINE YELLOW; GLUCOSE,URINE NEG (NEG)
[2020-07-11 15:36] LABS: NITRITE,URINE NEG (NEG); UROBILINOGEN,URINE 0.2 mg/dL (0.2 mg/dL)
[2020-07-11 15:38] LABS: BACTERIA,URINE FEW /HPF (0-FEW); SQUAMOUS EPITHELIAL CELL,UR FEW /LPF
[2020-07-11 16:30] VITALS: BP 117/66
== END 2020-07-11 17:24 | disposition home or self-care (01) ==
LOC: ER 12:41
DX: E86.0 Dehydration (principal); R42 Dizziness and giddiness; Z88.8 Allergy status to other drugs, medicaments and biological substances; Z88.7 Allergy status to serum and vaccine
CPT/HCPCS: 36415; 80053; 81001; 81025; 83735; 85025; 93005; 96360; 96361; 99285; J7030

== ENCOUNTER 2021-03-31 20:49 | Emergency (ER) | payer BC, OTHER ==
[~2021-03-31] VITALS: Ht 182.9 cm; Wt 88.2 kg
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
[2021-03-31] MEDS: LIDOCAINE/EPI/TETRACAINE TOPICAL GEL 3 ML. TP ONE (22:16)
[2021-03-31 22:22] VITALS: BP 118/61
== END 2021-03-31 22:29 | disposition home or self-care (01) ==
LOC: ER 20:49
DX: T21.21XA Burn of second degree of chest wall, initial encounter (principal); R42 Dizziness and giddiness; Z88.6 Allergy status to analgesic agent; X10.1XXA Contact with hot food, initial encounter; Y93.89 Activity, other specified; Y92.89 Other specified places as the place of occurrence of the external cause; Y99.8 Other external cause status
CPT/HCPCS: 16020; 99282-25